=== PATIENT | male | born 1965 | race Two or more races ===

== ENCOUNTER 2022-10-27 19:41 | Emergency (ER) | payer OTHER ==
[~2022-10-27] VITALS: Ht 182.9 cm; Wt 90.7 kg
[2022-10-27] MEDS ORDERED: LOSARTAN-HCTZ1 EACH PO (21:57)
[2022-10-27] MEDS ORDERED: MAXITROL EYE DRO5 ML OP (21:57)
== END 2022-10-27 22:00 | disposition home or self-care (01) ==
LOC: ER 19:41
DX: S05.31XA Ocular laceration without prolapse or loss of intraocular tissue, right eye, initial encounter (principal); X58.XXXA Exposure to other specified factors, initial encounter; Y93.89 Activity, other specified; Y92.89 Other specified places as the place of occurrence of the external cause; Y99.8 Other external cause status